=== PATIENT | female | born 1965 | race Caucasian/White ===

== ENCOUNTER → 2016-07-19 | Outpatient (CLI) | payer BC ==
--- NOTE | 2016-07-19 11:02 | MM ---
Reason for exam: clinical finding. Last mammogram was performed 2 years and 4 months ago. Physical Findings: Midline superficial lesion (Dr. Castro). MG 3D Diag Mammo W/Cad SHENG Bilateral CC and MLO view(s) were taken. Prior study comparison: March 10, 2014, bilateral MG screening mammo w CAD. February 25, 2013, bilateral digital screening mammo w/CAD. February 13, 2012, bilateral digital screening mammo w/CAD. The breast tissue is heterogeneously dense. This may lower the sensitivity of mammography. There is no discrete abnormality. These results were verbally communicated with the patient and result sheet given to the patient on 07/19/16. ASSESSMENT: Incomplete: need additional imaging evaluation, BI-RAD 0 RECOMMENDATION: Ultrasound of the right breast. (Palpable between breasts by ). [facility] will attempt to contact patient to return for ultrasound.
--- NOTE | 2016-07-19 11:12 | USB ---
Reason for exam: clinical finding. US Breast Workup Limited RT Right breast ultrasound demonstrates a 0.5 x .4 x 0.5cm oval, hypoechoic lesion at 4 o'clock, just below skin surface, suspect sebaceous cyst or other dermatologic lesion. These results were verbally communicated with the patient and result sheet given to the patient on 07/19/16. ASSESSMENT: Probably benign, BI-RAD 3 RECOMMENDATION: Ultrasound of the right breast in 6 months. (Consider)
--- NOTE | 2016-07-19 18:27 | WWHP ---
DATE OF SERVICE: 07/19/2016 CHIEF COMPLAINT: Patient is here for her routine gynecologic exam and mammogram. HPI: This is a 50-year-old G4, P2-0-2-2 with an LMP of 07/12/2016. Her partner is status post vasectomy. She states she has felt a small lump in the midline between her breasts for about one year. She states it initially looked like a pimple. She states she previously would squeeze and drain the pimple-like lump and now it tends to be more of a firm lump. The patient also states her periods have become a little more irregular and she did miss a period in April and May of this year. This was unusual for her. Her periods are lasting about 5 days with 2 days of heavier flow where she has to change her protection about every 2 hours. She has had occasional night sweats but no significant hot flashes during the day. PAST MEDICAL HISTORY: Asthma and depression. MEDICATIONS: 1. Lexapro 20 mg daily. 2. Albuterol inhaler p.r.n. 3. QVAR inhaler p.r.n. 4. Aleve p.r.n. ALLERGIES: No known drug allergies. PAST SURGICAL HISTORY: Left hip replacement surgery 2012 and colonoscopy in her 30s. 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 SOCIAL HISTORY: She smokes about 1/2 pack of cigarettes per day, about 15 alcohol-containing drinks per week and denies drug use. 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 REVIEW OF SYSTEMS: She has lost about 14 pounds over the last 2 years. Denies respiratory, cardiac, or GI problems. PHYSICAL EXAM: Blood pressure 121/76. Height 5 feet 6 inches. Weight 174 pounds. Temperature 98.0, pulse 63. This is a well-developed, well-nourished white female who is alert and oriented x3 in no acute distress. HEENT is within normal limits. NECK: Supple without mass or thyromegaly. CHEST AND LUNGS: Clear to auscultation. HEART: Regular rate aneurysm. BREASTS: There is a 1 cm superficial lump in the midline between the breasts. This is somewhat firm and is nontender and there is no erythema. It is slightly visible when she is sitting upright and is not visible when she is lying down. This seems to be more of a skin lump and does not seem to be within the breast tissue. This is nontender. There are no other masses noted on breast exam. There is no nipple discharge. Breasts are nontender. Axillary exam is negative for adenopathy. BACK: Negative for CVA tenderness. ABDOMEN: Soft, nontender, without palpable masses. PELVIC EXAM: Normal external genitalia with no significant atrophy. Cervix and vagina reveal a small amount of old menstrual-type blood. There is no unusual discharge. There is no cervical motion tenderness. The uterus is midposition, multiparous, nongravid size and nontender. There are no palpable adnexal masses or tenderness. Rectovaginal exam Parikh for mass or tenderness and is negative for occult blood. EXTREMITIES: Nontender. IMPRESSION: 1. A 50-year-old perimenopausal female with normal pelvic exam. 2. Small 1 cm lump in the midline between the breasts, which is very superficial. This most likely represents a skin inclusion cyst and seems benign. 3. Mild hypermenorrhea. PLAN: 1. Pap smear was performed. 2. Self breast examination was discussed. 3. Diagnostic mammogram will be done today. A marker was placed directly a small midline lump. 4. If mammogram is benign. I have suggested conservative management unless the lump is bothersome to her or if she notices changing in size. If this is the case I have recommended that she see a entry level finance or general surgeon for possible lump removal. 5. Trial of meclofenamate sodium 100 mg t.i.d. p.r.n. for heavy menstrual flow up to 6 days per cycle. She will keep a menstrual calendar. 6. I have recommended she quit smoking and we have discussed many reasons why this is important. 7. Screening colonoscopy was recommended based on her age. She states she is in the process of arranging this through Dr. Schulte. 8. She will return in one year.
== END | disposition home or self-care (01) ==
LOC: WWCWWP 08:10
PROVIDERS: ATTEND Obstetrics & Gynecology
DX: N63 Unspecified lump in breast (principal); R92.8 Other abnormal and inconclusive findings on diagnostic imaging of breast
CPT/HCPCS: 76642; G0204; G0279

== ENCOUNTER → 2017-03-21 | Outpatient (CLI) | payer BC ==
--- NOTE | 2017-03-21 08:59 | P.PCN ---
Date of Procedure: 03/21/17 Preoperative Diagnosis: Dysfunctional uterine bleeding Postoperative Diagnosis: Dysfunctional uterine bleeding Procedure(s) Performed: Endometrial Biopsy Anesthesia: none Surgeon: Adrián Castro Estimated Blood Loss (ml): 1 Pathology: other (Endometrial tissue) Condition: stable Disposition: same day Indications for Procedure: This was a 51-year-old with an LMP of 03/06/2010. The patient's partner is status post vastectomy. She states her periods have been about every 3 to 5 weeks during the past year. Her LMP that started one month ago lasted for more than 30 days and had variable flow. She had occasional clots. She denies any significant hot flashes but has had a few during the night. Her bleeding today has been fairly light. Because of the dysfunctional uterine bleeding she was scheduled for an endometrial biopsy. The procedure was explained to her including possible risks and complications. All of her questions were answered. Operative Findings: The uterus is approximately 8 weeks size and is nontender. There are no palpable adnexal masses or tenderness. The uterus sounded to 9 cm. Moderate amount of tissue was obtained. Description of Procedure: The endometrial biopsy procedure was described to the patient. All of her questions were answered. The patient was placed in the lithotomy position. Bimanual examination was performed. The uterus is mid-positioned and is approximately 8 week size. The speculum was inserted and the cervix and vagina were prepped with betadine solution. And Allys clamp was used to grasp the anterior lip of the cervix. The 3mm endometrial biopsy curette was placed to the fundus without difficulty. The uterus sounded to 9 cm. A mqun-ilq-palbe rotating motion was used and a moderate amount of tissue was obtained and sent for pathological examination. The patient tolerated the procedure well. There were no complications. The post procedure vitals are as follows: blood pressure 116/68. pulse 57. Post procedure instructions were given to the patient. The patient was given a prescription for Provera 10 mg which she will take on days 14 through 25 of the month. She will use this over the next 3 months. She will keeping menstrual calendar and call if she has problems.
== END | disposition home or self-care (01) ==
LOC: WWCWWP 07:50
PROVIDERS: ATTEND Obstetrics & Gynecology
DX: N85.8 Other specified noninflammatory disorders of uterus (principal); N93.8 Other specified abnormal uterine and vaginal bleeding
CPT/HCPCS: 88305

== ENCOUNTER → 2017-04-09 | Outpatient (CLI) | payer BC ==
--- NOTE | 2017-04-10 08:17 | US ---
EXAMINATION TYPE: US pelvic complete DATE OF EXAM: 04/09/2017 COMPARISON: NONE CLINICAL HISTORY: N93.9 Uterine Hemorrhage. Abnormal uterine bleeding x 8 weeks. TECHNIQUE: Transabdominal (TA). EXAM MEASUREMENTS: Uterus: 9.6 x 4.7 x 5.4 cm Endometrial Stripe: 0.4 cm Right Ovary: 2.7 x 1.8 x 3.1 cm Left Ovary: 3.6 x 2.0 x 3.0 cm 1. Uterus: Anteverted wnl 2. Endometrium: wnl 3. Right Ovary: wnl 4. Left Ovary: Complex area seen measuring 2.7 x 1.7 x 1.9 cm 5. Bilateral Adnexa: wnl 6. Posterior cul-de-sac: wnl Complex area seen left ovary measuring 2.7 x 1.7 x 1.9cm. IMPRESSION: 1. Complex 2.7 cm left ovarian lesion. Differential diagnosis would include a hemorrhagic cyst. Endom etrioma not excluded. Short-term follow-up exam in 6-8 weeks recommended to resolution to exclude oth er etiologies including cystic neoplasm
== END | disposition home or self-care (01) ==
LOC: RADUSMAIN 17:52
PROVIDERS: ATTEND Obstetrics & Gynecology
DX: N83.9 Noninflammatory disorder of ovary, fallopian tube and broad ligament, unspecified (principal); N93.9 Abnormal uterine and vaginal bleeding, unspecified
CPT/HCPCS: 76856

== ENCOUNTER → 2017-04-26 | Outpatient (CLI) | payer BC ==
[2017-04-26 08:42] LABS: Basophils % (A) 0 %; Eosinophils # (A) 0.2 k/uL (0-0.7); Eosinophils % (A) 3 %; HCT 39.8 % (34.0-46.0); HGB 13.2 gm/dL (11.4-16.0); Lymphocytes # (A) 1.7 k/uL (1.0-4.8); Lymphocytes % (A) 25 %; MCH 30.5 pg (25.0-35.0); MCHC 33.1 g/dL (31.0-37.0); MCV 92.4 fL (80.0-100.0); Mean Platelet Volume 7.9; Monocytes # (A) 0.4 k/uL (0-1.0); Monocytes % (A) 5 %; Neutrophils # (A) 4.4 k/uL (1.3-7.7); Neutrophils % (A) 64 %; Platelet Count 217 k/uL (150-450); RBC 4.31 m/uL (3.80-5.40); RDW 13.5 % (11.5-15.5); WBC 6.9 k/uL (3.8-10.6)
== END | disposition home or self-care (01) ==
LOC: LABPAT 07:54
PROVIDERS: ATTEND Obstetrics & Gynecology
DX: Z01.812 Encounter for preprocedural laboratory examination (principal); N93.8 Other specified abnormal uterine and vaginal bleeding
CPT/HCPCS: 36415; 85025

== ENCOUNTER 2017-04-30 09:39 | Day surgery (SDC) | payer BC ==
[2017-04-25 10:58] VITALS: BMI 28.2
[~2017-04-30 09:39] MED LIST: DEXAMETHASONE SOD PHOSPHATE 10 MG/ML 1 ML VIAL IV ONE; LACTATED RINGERS 1,000 ML IV SCH; MORPHINE SULFATE 4 MG/ML SYRINGE IV PRN; ONDANSETRON 4 MG/2 ML VIAL IVP ONE; Pre Op ABX Message 1 EACH MISC MISCELLANE ONE
[2017-04-30] MEDS ORDERED: MIDAZOLAM 2 MG/2 ML VIAL IVP ONE (12:15)
[2017-04-30] MEDS ORDERED: LIDOCAINE 1% 20 ML VIAL (10MG/ML) FOR IV START IV ONE (12:16)
[2017-04-30] MEDS ORDERED: KETOROLAC 30 MG/ML 1 ML VIAL ONE (12:21)
[2017-04-30] MEDS ORDERED: PROPOFOL 10 MG/ML 20 ML VIAL IV ONE (12:21)
[2017-04-30] MEDS ORDERED: MIDAZOLAM 2 MG/2 ML VIAL ONE (12:21)
[2017-04-30] MEDS ORDERED: fentaNYL (PF) 50 MCG/ML 2 ML AMP ONE (12:21)
[2017-04-30] MEDS ORDERED: LIDOCAINE 1%-EPI 1:100,000 20 ML VIAL SQ ONE (12:34)
--- NOTE | 2017-04-30 12:52 | P.OP ---
Date of Procedure: 04/30/17 Preoperative Diagnosis: Dysfunctional uterine bleeding Postoperative Diagnosis: Same Anesthesia: local, other Surgeon: Isabel Perez Estimated Blood Loss (ml): 0 IV fluids (ml): 25 Urine output (ml): 300 Pathology: none sent Condition: stable Disposition: PACU Operative Findings: Normal intrauterine cavity with no evidence of gross lesions or polyps. Description of Procedure: After the patient was met in the preoperative holding area and extensive discussion regarding risks benefits and alternatives for anesthetics was undertaken she was eventually taken to the operating room where sedation was administered. She was positioned, prepped and draped in the dorsal lithotomy position. Bladder was drained for approximately 25 mL of clear urine. Speculum was placed in the vagina and the cervix was grasped anteriorly with a single-tooth tenaculum. Cervix os right paracervical block was placed with lidocaine plus epinephrine in the usual fashion. Uterus was then sounded to 9 cm. Cervix was sequentially dilated with Hegar dilators to allow for passage of the diagnostic hysteroscope. The hysteroscope was introduced and the above findings were noted. Hysteroscope was removed and the cervix was further dilated to allow for passage of the NovaSure ablation device. The device was inserted with a cavity length of 5.5 cm and a width of 3.3 cm. Cavity assessment test was passed and the device was enabled. Treatment cycle 59 seconds with a power 100 W. Following cessation of the treatment cycle the device was removed and the hysteroscope was reintroduced. Complete desiccation of the endometrium was appreciated. Camera was removed as was the tenaculum. The cervix was observed and no bleeding was noted. All instruments were then removed from the vagina and the patient was on transported recovery in stable condition. Counts are correct.
[2017-04-30 12:58] VITALS: TEMP 97
[2017-04-30 13:35] VITALS: RESP 18
[2017-04-30 14:05] VITALS: BP 145/78; PULSE 78
== END 2017-04-30 14:17 | disposition home or self-care (01) ==
LOC: OR 09:39
PROVIDERS: ATTEND Obstetrics & Gynecology
DX: N93.8 Other specified abnormal uterine and vaginal bleeding (principal); R01.1 Cardiac murmur, unspecified; E04.9 Nontoxic goiter, unspecified; Z80.0 Family history of malignant neoplasm of digestive organs; Z80.7 Family history of other malignant neoplasms of lymphoid, hematopoietic and related tissues; J44.9 Chronic obstructive pulmonary disease, unspecified; F17.210 Nicotine dependence, cigarettes, uncomplicated; F39 Unspecified mood [affective] disorder; Z79.1 Long term (current) use of non-steroidal anti-inflammatories (NSAID); Z79.899 Other long term (current) drug therapy
CPT/HCPCS: 81025; 58563; J2250; J1100; J2405; J3010; J1885; J2704

== ENCOUNTER → 2018-11-27 | Outpatient (CLI) | payer BC ==
--- NOTE | 2018-11-27 21:11 | MR ---
EXAMINATION TYPE: MR brain and iac wo/w con DATE OF EXAM: 11/27/2018 COMPARISON: None HISTORY: Dizziness/vertigo TECHNIQUE: Multiplanar, multisequence images of the brain and brainstem with small [id number]-cl-[id number], high-resolutio n images through the internal auditory canals is performed without and with IV contrast, utilizing 7. 5 mL intravenous Gadavist . FINDINGS: Diffusion weighted images demonstrate no evidence of a recent infarct or other diffusion ab normality. There is no extra-axial fluid collection or significant white matter signal abnormality. The ventricular system and cisternal spaces are normal in size and appearance. The brain volume is age appropriate. Midline structures demonstrate normal morphology. The craniocervical junction appears within normal limits. Post contrast images demonstrate no abnormal enhancement. Cerebellopontine angles, internal auditory canals are normal. The dural venous sinuses appear patent. The visualized sinuses are remark able for some mild inflammatory change in the ethmoid air cells and maxillary sinus, and the globes a re intact. IMPRESSION: Mild sinus disease.
== END | disposition home or self-care (01) ==
LOC: RADMRIMAIN 17:57
PROVIDERS: ATTEND Nurse Practitioner Family
DX: R42 Dizziness and giddiness (principal)
CPT/HCPCS: 70553; A9585

== ENCOUNTER → 2019-01-27 | Outpatient (CLI) | payer BC ==
--- NOTE | 2019-01-31 12:37 | MM ---
Reason for exam: screening (asymptomatic). Last mammogram was performed 2 years and 6 months ago. Physical Findings: A clinical breast exam by your physician is recommended on an annual basis and results should be correlated with mammographic findings. MG Screening Mammo w CAD Bilateral CC and MLO view(s) were taken. Prior study comparison: July 19, 2016, bilateral MG 3d diag mammo w/cad SHENG. March 10, 2014, bilateral MG screening mammo w CAD. The breast tissue is heterogeneously dense. This may lower the sensitivity of mammography. Asymmetric breast tissue left breast, stable. There is no discrete abnormality. ASSESSMENT: Negative, BI-RAD 1 RECOMMENDATION: Routine screening mammogram of both breasts in 1 year.
== END | disposition home or self-care (01) ==
LOC: RADMAMWWP 13:52
PROVIDERS: ATTEND Obstetrics & Gynecology
DX: Z12.31 Encounter for screening mammogram for malignant neoplasm of breast (principal)
CPT/HCPCS: 77067

== ENCOUNTER → 2020-01-29 | Outpatient (CLI) | payer BC ==
[2020-01-29 10:48] LABS: Basophils % (A) 0 %; Eosinophils # (A) 0.2 k/uL (0-0.7); Eosinophils % (A) 3 %; HCT 41.6 % (34.0-46.0); HGB 13.5 gm/dL (11.4-16.0); Lymphocytes # (A) 1.3 k/uL (1.0-4.8); Lymphocytes % (A) 22 %; MCH 30.7 pg (25.0-35.0); MCHC 32.6 g/dL (31.0-37.0); MCV 94.2 fL (80.0-100.0); Mean Platelet Volume 8.1; Monocytes # (A) 0.3 k/uL (0-1.0); Monocytes % (A) 6 %; Neutrophils % (A) 67 %; Platelet Count 206 k/uL (150-450); RBC 4.41 m/uL (3.80-5.40); RDW 13.7 % (11.5-15.5); WBC 5.9 k/uL (3.8-10.6)
[2020-01-29 11:55] LABS: Appearance,Urine Cloudy (Clear); Bacteria,Urine Moderate /hpf; Bilirubin,Urine Negative (Negative); Blood,Urine Moderate (Negative); Color,Urine Yellow; Glucose,Urine (UA) Negative (Negative); Ketones,Urine Negative (Negative); Leukocyte Esterase,Urine Negative (Negative); Mucus,Urine Occasional /hpf; Nitrite,Urine Negative (Negative); Protein,Urine Negative (Negative); RBC,Urine 2 /hpf (0-5); Squamous Epithelial Cell,Urine 10 /hpf (0-4); Urobilinogen,Urine <2.0 mg/dL (<2.0); WBC,Urine 4 /hpf (0-5)
[2020-01-29 19:03] LABS: African American GFR (CKD) 95.5 (60.0-200.0); Albumin 4.3 g/dL (3.80-4.90); Albumin/Globulin Ratio 2.05 (1.60-3.17); Anion Gap 8.3 mmol/L (4.00-12.00); Calcium 9.2 mg/dL (8.7-10.3); Carbon Dioxide 25.7 mmol/L (21.6-31.8); Globulin 2.1 g/dL (1.6-3.3); Non-African American GFR(CKD) 82.4 (60.0-200.0); Potassium 4.5 mmol/L (3.5-5.5); Total Bilirubin 0.6 mg/dL (0.2-1.2); Total Protein 6.4 g/dL (6.2-8.2)
== END | disposition home or self-care (01) ==
LOC: LABWHC1 10:20
PROVIDERS: ATTEND Family Medicine
DX: F10.10 Alcohol abuse, uncomplicated (principal); R31.29 Other microscopic hematuria
CPT/HCPCS: 36415; 80053; 81001; 85025

== ENCOUNTER 2021-01-18 19:38 | Emergency (ER) | payer BC ==
[2021-01-18 21:00] VITALS: BP 117/78; TEMP 97.5
[2021-01-18] MEDS ORDERED: ONDANSETRON 4 MG/2 ML VIAL IVP STA (21:29)
[2021-01-18] MEDS ORDERED: SODIUM CHLORIDE 0.9% 500 ML 500 ML IV STA (21:29)
[2021-01-18] MEDS ORDERED: FAMOTIDINE 20 MG/2 ML VIAL IV STA (21:29)
--- NOTE | 2021-01-18 21:32 | ED ---
General Adult HPI - General Source: patient, RN notes reviewed Mode of arrival: ambulatory Limitations: no limitations - History of Present Illness -: days(s) (1) Location: chest Severity scale (1-10): 2 Consistency: constant Improves with: none Worsens with: none Associated Symptoms: cough, nausea/vomiting, other (sore throat, runny nose) <Saurabh Fontanez - Last Filed: 01/19/21 00:56> <Ivelisse Lipscomb - Last Filed: 01/19/21 16:35> - General Chief complaint: Upper Respiratory Infection Stated complaint: Covid+,Wants antibody Time Seen by Provider: 01/18/21 21:20 - History of Present Illness Initial comments: This is a well-appearing 55-year-old female is alert and oriented 4, presents to the emergency room with complaints of running nose, cough and sore throat and nausea since yesterday. Patient states that she does have a history of asthma. She has been vaccinated against coronavirus. She is a smoker. She states that her family members had tested positive and has recovered from Covid. (Saurabh Fontanez) - Related Data Home Medications Medication Instructions Recorded Confirmed Albuterol Inhaler (Mhu) [Ventolin 1 - 2 puff INHALATION Q6HR PRN 04/25/17 04/25/17 Hfa Inhaler] Escitalopram [Lexapro] 10 mg PO 1200 04/25/17 04/25/17 Naproxen Sodium [Aleve] 220 mg PO BID PRN 04/25/17 04/25/17 Allergies Allergy/AdvReac Type Severity Reaction Status Date / Time No Known Allergies Allergy Verified 01/18/21 21:01 Review of Systems ROS Other: All systems not noted in ROS Statement are negative. <Saurabh Fontanez - Last Filed: 01/19/21 00:56> ROS Other: All systems not noted in ROS Statement are negative. <Ivelisse Lipscomb - Last Filed: 01/19/21 16:35> ROS Statement: Those systems with pertinent positive or pertinent negative responses have been documented in the HPI. Past Medical History Past Medical History: Asthma Additional Past Medical History / Comment(s): Heart murmur History of Any Multi-Drug Resistant Organisms: None Reported Past Surgical History: Ear Surgery, Joint Replacement Additional Past Surgical History / Comment(s): Left hip replacement, D&C, ear cyst removed. Past Anesthesia/Blood Transfusion Reactions: Postoperative Nausea & Vomiting (PONV) Past Psychological History: Anxiety, Depression Smoking Status: Current every day smoker Past Alcohol Use History: Occasional Past Drug Use History: None Reported - Past Family History Father Family Medical History: Cancer Additional Family Medical History / Comment(s): lymphoma <Saurabh Fontanez - Last Filed: 01/19/21 00:56> General Exam Limitations: no limitations General appearance: alert, in no apparent distress Head exam: Present: atraumatic, normocephalic, normal inspection Eye exam: Present: normal appearance, PERRL, EOMI. Absent: scleral icterus, conjunctival injection, periorbital swelling ENT exam: Present: normal exam, normal oropharynx, mucous membranes moist Neck exam: Present: normal inspection, full ROM. Absent: tenderness, meningismus, lymphadenopathy, thyromegaly Respiratory exam: Present: normal lung sounds bilaterally. Absent: respiratory distress, wheezes, rales, rhonchi, stridor Cardiovascular Exam: Present: regular rate, normal rhythm, normal heart sounds. Absent: systolic murmur, diastolic murmur, rubs, gallop, clicks GI/Abdominal exam: Present: soft, normal bowel sounds. Absent: distended, tenderness, guarding, rebound, rigid Extremities exam: Present: normal inspection, full ROM, normal capillary refill. Absent: tenderness, pedal edema, joint swelling, calf tenderness Neurological exam: Present: alert, oriented X3 Psychiatric exam: Present: normal affect, normal mood. Absent: anxious Skin exam: Present: warm, dry, intact, normal color. Absent: rash, cyanosis, diaphoretic <Saurabh Fontanez - Last Filed: 01/19/21 00:56> Course Vital Signs 01/18/21 01/19/21 20:57 00:08 Temperature 97.5 F L Pulse Rate 69 70 Respiratory 18 16 Rate Blood Pressure 117/78 O2 Sat by Pulse 97 97 Oximetry Medical Decision Making <Saurabh Fontanez - Last Filed: 01/19/21 00:56> <Ivelisse Lipscomb - Last Filed: 01/19/21 16:35> - Medical Decision Making This is a well-appearing 55-year-old female is alert and oriented 4, presents to the emergency room with complaints of running nose, cough and sore throat and nausea since yesterday. Patient states that she does have a history of asthma. She has been vaccinated against coronavirus. She is a smoker. Patient was receiving the monoclonal antibodies infusion and tolerated it well. She'll be discharged home to follow up with her primary care doctor or return to the emergency room with any new or worsening symptoms. (Saurabh Fontanez) I was available for consultation in the emergency department. The history and physical exam were done by the midlevel provider. I was consulted for this patients care. I reviewed the case with the midlevel provider and based on their presentation of the patient, I agree with the assessment, medical decision making and plan of care as documented. Chart was dictated using Rebel[employer] dictation software. Attempts were made to correct any dictation errors however some typographical errors may persist. (Ivelisse Lipscomb) - Lab Data Lab Results 01/18/21 Range/Units 21:04 Coronavirus (PCR) Detected A (Not Detectd) Disposition Is patient prescribed a controlled substance at d/c from ED?: No Time of Disposition: 23:44 <Saurabh Fontanez - Last Filed: 01/19/21 00:56> <Ivelisse Lipscomb - Last Filed: 01/19/21 16:35> Clinical Impression: COVID-19 Disposition: HOME SELF-CARE Condition: Good Instructions (If sedation given, give patient instructions): Coronavirus Disease 2019 (COVID-19) Additional Instructions: Return to the emergency room with any new or concerning symptoms. Vitamin C, vitamin D and zinc to improve immune health. Increase your fluid intake. Referrals: Jude Schulte DO [Primary Care Provider] - 1-2 days
[2021-01-18] MEDS ORDERED: SODIUM CHLORIDE 0.9% 50 ML IVPB ONE (21:45)
[2021-01-18] MEDS ORDERED: BAMLANIVIMAB (EUA) 700 MG, ETESEVIMAB (EUA) 1,400 MG in SODIUM CHLORIDE 0.9% 50 ML IVPB ONE (22:15)
[2021-01-19 00:08] VITALS: PULSE 70; RESP 16
== END 2021-01-19 00:08 | disposition home or self-care (01) ==
LOC: EC 19:38
DX: U07.1 COVID-19 (principal); J45.909 Unspecified asthma, uncomplicated; F32.A Depression, unspecified; F41.9 Anxiety disorder, unspecified; F17.200 Nicotine dependence, unspecified, uncomplicated; Z79.1 Long term (current) use of non-steroidal anti-inflammatories (NSAID); Z79.51 Long term (current) use of inhaled steroids; Z79.899 Other long term (current) drug therapy
CPT/HCPCS: 87635; 99283

== ENCOUNTER → 2022-06-15 | Outpatient (CLI) | payer BC ==
--- NOTE | 2022-06-16 19:57 | MM ---
Reason for Exam: Screening (asymptomatic). Last mammogram was performed 3 year(s) and 5 month(s) ago. Patient History: Menarche at age 12. First Full-Term at age 18. Postmenopausal. Risk Values: Zoraida 5 year model risk: 1.1%. NCI Lifetime model risk: 6.3%. Prior Study Comparison: 03/10/2014 Bilateral Screening Mammogram, [facility]. 07/19/2016 Bilateral Diagnostic Mammogram, [facility]. 01/27/2019 Bilateral Screening Mammogram, [facility]. Tissue Density: The breast tissue is heterogeneously dense. This may lower the sensitivity of mammography. Findings: Analyzed By CAD. Lateral posterior asymmetric density on the left cc view remains unchanged. There is no suspicious group of microcalcifications or new suspicious mass in either breast. Overall Assessment: Benign, BI-RAD 2 Management: Screening Mammogram of both breasts in 1 year. . Patient should continue monthly self-breast exams. A clinical breast exam by your physician is recommended on an annual basis. This exam should not preclude additional follow-up of suspicious palpable abnormalities. Note on Zoraida scores and lifetime risk: 1. A Zoraida score greater than 3% is considered moderate risk. If this is the case, consider specialist referral to assess eligibility for a risk reducing agent. 2. If overall lifetime risk for the development of breast cancer is 20% or higher, the patient may qualify for future screening with alternating mammogram and breast MRI. Electronically signed and approved by: Lg Cleveland M.D. Radiologist
== END | disposition home or self-care (01) ==
LOC: RADMAMWWP 16:48
PROVIDERS: ATTEND Obstetrics & Gynecology
DX: Z12.31 Encounter for screening mammogram for malignant neoplasm of breast (principal); Z78.0 Asymptomatic menopausal state
CPT/HCPCS: 77063; 77067

== ENCOUNTER → 2023-02-12 | Outpatient (CLI) | payer BC ==
--- NOTE | 2023-02-12 18:43 | US ---
EXAMINATION TYPE: US kidneys/renal and bladder DATE OF EXAM: 02/12/2023 COMPARISON: 04/09/2017 CLINICAL INDICATION: Female, 57 years old with history of R31.29 OTHER MICROSCOPIC HEMATURIA; EXAM MEASUREMENTS: Right Kidney: 10.0 x 4.8 x 3.8 cm Left Kidney: 11.1 x 5.9 x 4.7 cm Post Void Residual Volume: 26.05 mL Right Kidney: No hydronephrosis or masses seen Left Kidney: No hydronephrosis or masses seen Bladder: Anechoic Bilateral Jets seen: Yes Normal Post Void Residual: Yes IMPRESSION: 1. Normal renal ultrasound
== END | disposition home or self-care (01) ==
LOC: RADUSWWP 16:13
PROVIDERS: ATTEND Family Medicine
DX: R31.29 Other microscopic hematuria (principal)
CPT/HCPCS: 76770

== ENCOUNTER → 2023-07-13 | Outpatient (CLI) | payer BC ==
--- NOTE | 2023-07-16 13:15 | MM ---
Reason for Exam: Screening (asymptomatic). Last mammogram was performed 1 year(s) and 1 month(s) ago. Patient History: Menarche at age 12. First Full-Term at age 18. Postmenopausal. Risk Values: Zoraida 5 year model risk: 1.1%. NCI Lifetime model risk: 6.2%. Prior Study Comparison: 07/19/2016 Bilateral Diagnostic Mammogram, [facility]. 01/27/2019 Bilateral Screening Mammogram, [facility]. 06/15/2022 Bilateral MG 3D screening mammo w/cad, [facility]. Tissue Density: The breasts are heterogeneously dense, which may obscure small masses. Findings: Analyzed By CAD. There is no suspicious group of microcalcifications or new suspicious mass in either breast. Overall Assessment: Negative, BI-RAD 1 Management: Screening Mammogram of both breasts in 1 year. . Patient should continue monthly self-breast exams. A clinical breast exam by your physician is recommended on an annual basis. This exam should not preclude additional follow-up of suspicious palpable abnormalities. Note on Zoraida scores and lifetime risk: 1. A Zoraida score greater than 3% is considered moderate risk. If this is the case, consider specialist referral to assess eligibility for a risk reducing agent. 2. If overall lifetime risk for the development of breast cancer is 20% or higher, the patient may qualify for future screening with alternating mammogram and breast MRI. Electronically signed and approved by: Darrius Cardona M.D. Radiologis
== END | disposition home or self-care (01) ==
LOC: RADMAMWWP 11:34
PROVIDERS: ATTEND Obstetrics & Gynecology
DX: Z12.31 Encounter for screening mammogram for malignant neoplasm of breast (principal); Z78.0 Asymptomatic menopausal state
CPT/HCPCS: 77067